=== PATIENT | male | born 1985 | race Caucasian/White ===

== ENCOUNTER 2016-08-18 09:48 | Emergency (ER) | payer MEDICAID ==
[~2016-08-18] VITALS: Ht 160 cm; Wt 73.0 kg
[2016-08-18 09:51] VITALS: Ht 160 cm; Wt 73.0 kg
[2016-08-18] MEDS ORDERED: FLUORESCEIN STRIP RIGHT EYE STA (10:39)
[2016-08-18] MEDS ORDERED: TETRACAINE 0.5% 4 ML OPH RIGHT EYE STA (10:39)
[2016-08-18] MEDS ORDERED: SOD CHLORIDE 0.9% 500 ML IV STA (11:17)
[2016-08-18] MEDS ORDERED: ERYTOPOI RIGHT EYE (12:17)
--- NOTE | 2016-08-18 13:47 | ERD ---
ER Documentation Chief Complaint Date/Time DATE: 08/18/16 TIME: 13:43 Chief Complaint RIGHT EYE PAIN HPI This is a 31-year-old male presenting to the emergency department complaining of right eye pain and foreign body for the past 3 days. Patient states that 3 days ago he thinks he got a piece of trash into his eye. He states the pain is 7 out of 10 and admits to redness. He denies any discharge. Denies any vision changes, blurry vision or loss. He denies any fevers. He has not taken any medications for this. ROS All systems reviewed and are negative except as per history of present illness. Medications Home Meds Active Scripts Erythromycin* (Erythromycin* Ophthalmic) 1 Applic Oint, 1 APPLIC RIGHT EYE QID for 7 Days Prov:CLARENCE CHU PA-C 08/18/16 PMhx/Soc Medical and Surgical Hx: pt denies Medical Hx, pt denies Surgical Hx Hx Alcohol Use: Yes Hx Substance Use: No Hx Tobacco Use: No Smoking Status: Never smoker Physical Exam Vitals Vital Signs Date Time Temp Pulse Resp B/P Pulse Ox O2 Delivery O2 Flow Rate FiO2 08/18/16 09:51 98.7 81 19 133/86 97 Physical Exam General: WD/WN, in no apparent distress, non-toxic appearing HENT: NC/AT EYES: right conjunctiva is erythematous. punctate black FB noted at 7 o'clock position on the iris left Conjunctiva normal, no icterus Extraocular muscles intact, pupils equal and reactive to light with consensual response No ptosis, proptosis right eye Fluorescein staining examination with ochoa lamp did not show any uptake Negative Hien test NECK: Supple; no LAD PULM: Normal labored breathing CV: RRR Good capillary refill GI: Non-distended, no guarding BACK: No masses EXT: No clubbing, cyanosis, or edema NEURO: Moves on all fours SKIN: intact PSYCH: Normal mood Results 24 hrs Current Medications Medications (Trade) Dose Ordered Sig/Cindy Route PRN Reason Start Time Stop Time Status Last Admin Dose Admin Tetracaine HCl (Tetracaine 0.5% Steri-Unit Preethi) 1 drop ONCE STAT RIGHT EYE 08/18/16 10:39 08/18/16 10:40 DC Fluorescein Sodium 1 strip 1 strip ONCE STAT RIGHT EYE 08/18/16 10:39 08/18/16 10:40 DC Sodium Chloride (NS) 500 ml @ 500 mls/hr Q1H STAT IV 08/18/16 11:17 08/18/16 12:16 DC 08/18/16 11:23 Procedures/MDM This is a 31-year-old male presenting to the emergency department with a complaint of right eye erythema and pain for the past 3 days likely due to a foreign body. There was no evidence of any rust ring. No evidence of high- impact trauma. Tetracaine was applied to the right eye, I have used for assisting and there was no evidence of any rectal reuptake. On examination I was able to see a punctate black foreign body at 7 o'clock position at the iris , I have tried to remove it with a sterile cotton tip. I have removed most of it however unable to remove all of it since it appears deeper. A Abel lens was applied and the right eye was irrigated with copious amount of normal saline. I have consulted my supervising physician Dr. Grant in which he suggested for patient to follow-up with an career services officer within the next 24 hours to get the bursa stem removal for the foreign body. I discussed this with the patient and he understood and agree with this plan. A prescription for erythromycin ointment have been provided. Patient is stable for discharge for home to follow-up with an career services officer within the next day. Discussed return to the ER for any worsening symptoms. He understands and agrees with this plan Departure Diagnosis: Primary Impression: Foreign body in eye Additional Impression: Pain in eye Condition: Fair Patient Instructions: Understanding Red Eye: Causes, Foreign Object in the Cornea Referrals: [facility] Hours: Mon - Fri 9:00 AM - 5:00 PM Additional Instructions: Usted necesita fabiola seguimiento a un ophthomologist lacey pronto mayra sea posible Visite a mccauley mdstacy mann para un EXAMEN.Regrese a estas instalaciones si no se mejora mayra esperbamos o mayra le dijimos. Regrese a estas instalaciones si no se mejora mayra esperbamos o mayra le dijimos. [place] toda la medicina beatriz y mayra se le indic. CLARENCE CHU PA-C August 18, 2016 13:47
== END 2016-08-18 13:01 | disposition home or self-care (01) ==
LOC: FTE 09:48
DX: T15.01XA Foreign body in cornea, right eye, initial encounter (principal); X58.XXXA Exposure to other specified factors, initial encounter; Y92.9 Unspecified place or not applicable
CPT/HCPCS: 65220; J7040; Z7610